=== PATIENT | male | born 1975 | race Caucasian/White ===

== ENCOUNTER 2021-12-19 12:38 | Emergency (ER) | payer MEDICARE, MEDICAID, SELFPAY ==
--- NOTE | 2021-12-19 | ECG_ITS ---
Test Reason : REPEAT DUE TO INCREASED CHEST PAIN Blood Pressure : / mmHG Vent. Rate : 080 BPM Atrial Rate : 080 BPM P-R Int : 180 ms QRS Dur : 092 ms QT Int : 362 ms P-R-T Axes : 053 094 028 degrees QTc Int : 417 ms Normal sinus rhythm Rightward axis Borderline ECG When compared with ECG of 19-DEC-2021 13:29, No significant change was found Referred By: Generic ED Physician Electronically Signed By:RASHARD REYES
--- NOTE | 2021-12-19 | ECG_ITS ---
Test Reason : WEAKNESS Blood Pressure : / mmHG Vent. Rate : 084 BPM Atrial Rate : 084 BPM P-R Int : 176 ms QRS Dur : 086 ms QT Int : 354 ms P-R-T Axes : 045 087 034 degrees QTc Int : 418 ms Normal sinus rhythm Normal ECG When compared with ECG of 20-JUL-2016 15:05, No significant change was found Referred By: Generic ED Physician Electronically Signed By:RASHARD REYES
--- NOTE | ~2021-12-19 | CT_ITS ---
EXAMINATION: CT ABDOMEN AND PELVIS WITHOUT CONTRAST CLINICAL INFORMATION: Right and left lower quadrant pain, rule out appendicitis or diverticulitis COMPARISON: None TECHNIQUE: Multidetector volumetric imaging was performed from the superior aspect of the liver through the pubic symphysis. Sagittal and coronal reformatted images were obtained on the technologist's workstation. This CT examination was performed using dose optimization techniques as appropriate, variously including the following: *Automated exposure control *Adjustment of mA and/or kV according to patient size (this includes techniques or standardized protocols for targeted exams where dose is matched to indication/reason for exam; i.e. extremities or head) *Use of iterative reconstruction technique DLP: 459 mGy-cm FINDINGS: LUNG BASES: The visualized lung bases are unremarkable. LIVER, GALLBLADDER, AND BILIARY TREE: The liver is normal in size, shape, and attenuation. No focal hepatic lesion or biliary ductal dilatation is present. The gallbladder is unremarkable. PANCREAS: Unremarkable. SPLEEN: Unremarkable. ADRENAL GLANDS: Unremarkable. KIDNEYS AND URETERS: No hydronephrosis or obstructing calculus bilaterally. There is an exophytic 3.1 cm hypoattenuating lesion off the lower left kidney measuring at the upper limits of simple fluid density. Nonspecific bilateral perinephric stranding noted. BLADDER: Nearly empty with diffuse mural prominence. GASTROINTESTINAL TRACT: No evidence of bowel obstruction or significant wall thickening. The appendix is unremarkable. No free fluid or free air is seen. ABDOMINAL WALL: No significant hernia is appreciated. LYMPH NODES: Normal. VASCULAR: Mild to moderate atherosclerotic calcifications. PELVIC VISCERA: Unremarkable. OSSEOUS STRUCTURES: Scattered degenerative changes are present in the spine. CT/CT abdomen pelvis wo IV con IMPRESSION: 1. No acute bowel abnormality identified. Normal appendix. No evidence of diverticulitis. 2. Mural prominence of the urinary bladder which could be due to underdistention versus cystitis in the proper clinical setting. 3. Exophytic left renal lesion measuring at the upper limits of fluid density. This is suggestive of a cyst, though correlation with nonemergent renal ultrasound is recommended.
[2021-12-19 13:23] VITALS: BP 121/84; PULSE 85; RESP 18; TEMP 36.3; O2SAT 98; BMI 24.4
[2021-12-19 13:41] LABS: MANUAL DIFF FLAG NO
[2021-12-19 13:43] LABS: Basophils Absolute Auto 0.1 X10*3/uL (0.0-0.2); Basophils Percent Auto 0.5 % (0-2); Eosinophils Absolute Auto 0.1 X10*3/uL (0.0-0.4); Eosinophils Percent Auto 1.2 % (0-4); Hematocrit 47.7 % (42.0-52.0); Hemoglobin 16.2 g/dl (14.0-18.0); Imm Gran Abs Auto 0.04 X10*3/uL (0.00-0.03); Imm Gran Pct Auto 0.4 % (0.0-0.4); Lymphocytes Absolute Auto 2.4 X10*3/uL (1.2-4.9); Lymphocytes Percent Auto 26.2 % (20-40); Mean Corpuscular Volume 91.2 fL (80.0-98.0); Mean Platelet Volume 8.7 fL (9.4-12.4); Monocytes Absolute Auto 0.6 X10*3/uL (0.1-1.2); Monocytes Percent Auto 6.3 % (2-11); Neutrophils Percent Auto 65.4 % (45-73); Platelet Count 203 X10*3/uL (160-400); Red Blood Count 5.23 X10*6/uL (4.60-5.80); Red Cell Distribution Width 13.7 % (11.0-16.0); White Blood Count 9.2 X10*3/uL (4.8-10.8)
[2021-12-19 13:59] LABS: Anion Gap 16 (12-20); Blood Urea Nitrogen 12 mg/dL (9-16); Calcium 9.2 mg/dL (8.4-10.2); Carbon Dioxide 25 mmol/L (22-29); Chloride 101 mmol/L (96-108); Creatinine Clr Calc Pharmacy 92.6; Estimated Glomerular Filt Rate > 60; Glucose Random 107 mg/dL (60-115); Potassium 4.4 mmol/L (3.3-5.1); Sodium 138 mmol/L (135-145)
[2021-12-19 18:05] VITALS: BP 112/64; PULSE 74; RESP 18; TEMP 36.7; O2SAT 100
--- NOTE | 2021-12-19 21:04 | PC.NURSE ---
Patient's mother comes to triage [facility] stating patient c/o chest pressure. EKG done prior #2 EKG ordered.
--- OUTSIDE RECORDS SUMMARY | 2021-12-19 22:49 | XMS_ITS ---
:1975 Author Care Team Providers Name Role Phone KEYLA ALONSO Primary Care Provider [phone] Allergies Code Code System Name Reaction Severity Status Onset Penicillins ? ? Active ? Wellbutrin ? ? Active ? Medications No Medications Reported Problems None recorded. Procedures None recorded. Results Lab Results None recorded. Past Encounters None recorded. Social History Tobacco Smoking Status Current Every Day Smoker Vaccine List None recorded. Plan of Care Reminders Provider Appointments None recorded. ? ? Lab None recorded. ? ? Referral None recorded. ? ? Procedures None recorded. ? ? Surgeries None recorded. ? ? Imaging None recorded. ? ? Vitals Height Weight BMI 5 ft 11 in 173 lbs 24.1 kg/m2
[2021-12-19 22:51] LABS: Appearance Urine Clear; Color Urine Dark Yellow; Glucose Urine UA Negative (Negative); Leukocyte Esterase Urine Trace (Negative); Nitrite Urine Negative (Negative); PH 5.5 (5.0-9.0); Specific Gravity - Urine >= 1.030 (1.005-1.025); UMIC TRIGGER UACC YES; Urine Blood Negative (Negative); Urine Ketones 15 mg/dL (Negative); Urine Protein Trace mg/dL (Neg-Trace)
--- NOTE | 2021-12-19 23:12 | ED_ITS ---
HPI - Abdominal Pain General Chief Complaint: Abdominal Pain Stated Complaint: abd pain, blood in bath tub when bathing Time Seen by Provider: 12/19/21 22:32 Source: patient and family (Mother) Mode of arrival: ambulatory Limitations: no limitations History of Present Illness HPI narrative: 46-year-old male who presents emergency department for evaluation of abdominal pain. The patient states he has been having abdominal pain on off for approximately 1 week. He points to his lower abdomen when asked to localize the pain. Describes the pain is a pressure-like pain which is 6/10 at its worst. He states that he has had similar pain in the past when he has had constipation. He did take Colace this morning. The patient goes to a group program and while he was at the group program he had a bowel movement which revealed reddish brown stool. Patient states that his pain increased and staff members told that he looked pale advised him to go to the emergency department for evaluation. The patient's mother then picked him up and brought him to the ED for evaluation. The patient states that he does have bowel movements daily. He states the last 3 days he has been having shaking chills but no fever. He has had no weight loss or weight gain. He has had associated nausea with no vomiting. Denied f requency, urgency or dysuria MD elicited complaint: abdominal pain Pertinent past history: constipation Onset (ago): week(s) (1) Location: RLQ and LLQ Severity: moderate Pain scale (0-10): 6 Quality: other (Pressure) Radiation: none Migration to: no migration Exacerbating factors: nothing Relieving factors: nothing Associated symptoms: nausea and chills Related Data Allergies Allergy/AdvReac Type Severity Reaction Status Date / Time bupropion [From WELLBUTRIN] Allergy Intermediate AGITATION Unverified 12/03/19 18:42 Penicillins [PCN] Allergy Mild NAUSEA & Unverified 12/03/19 18:42 VOMITING Review of Systems Review of Systems Yes all other systems are reviewed and are negative [facility] Past Medical History [facility] Narrative: Past medical history: Depression, schizoaffective disorder, PTSD. Past surgical history: None. Social history: The patient smokes 10 cigarettes per day and 1 or 2 cigars per day. He smoked for 35 years. He denies alcohol use. States that he smokes medical marijuana. Social History Social History Advance Directives: No Advance Directives Information Provided: No Physical Exam ED Vital Signs: Vital Signs - 24 hr 12/19/21 13:23 12/19/21 18:05 12/20/21 00:00 Temperature 97.4 F 98.0 F 97.5 F Pulse Rate 85 74 69 Respiratory Rate 18 18 18 Blood Pressure 121/84 112/64 96/62 Pulse Oximetry 98 100 96 Oxygen Delivery Method Room Air Room Air Room Air BMI result Body Mass Index 24.4 Const Other: Awake, alert, male patient, very pleasant cooperative, does not appear to be in distress, answers all questions appropriately. HENMT Head: Yes normal to inspection, Yes normocephalic and Yes atraumatic Ears: external ears normal General nose exam: Normal external nose present Face and sinus: Yes normal facial exam Mouth: Normal oral and palatal mucosa present Throat: Yes posterior oropharynx normal Eyes General: appearance normal, both eyes and all related structures Pupils: Equal, round and reactive pupils present Neck Neck: Yes normal visual inspection, Yes no lymphadenopathy, Yes trachea midline and Yes supple Chest Chest palpation & inspection: normal inspection of the chest and normal palpation of entire chest wall Resp Effort & Inspection: normal respiratory effort and able to speak in complete sentences Auscultation: clear to auscultation bilaterally Cardio Rate: regular rate Rhythm: regular rhythm Heart sounds: S1 normal heart sound present, S2 normal heart sound present and no murmurs GI Inspection: Yes normal to inspection Palpation (GI): Soft to palpation, Tenderness to palpation present (GI) (Mild diffuse tenderness) in the LLQ (Moderate) and in the RLQ (Moderate) and no guarding Auscultation: normal bowel sounds Rectal Exam - Male: Yes Visual inspection abnormal, Yes normal sphincter tone and Yes other (Brown loose stool, sent for occult blood testing) General: Yes no CVA tenderness Back/Spine/Pelvis Back: no CVA tenderness Skin General skin exam: no rashes or lesions noted Neuro Cranial nerves: Yes CN's II-XII intact bilaterally and Yes Equal, round and reactive pupils present Cognition (Neuro): normal cognition Motor exam (neuro): 5/5 motor strength present throughout Extrem General: Yes normal to inspection Psych Appearance: grossly normal Speech and movement: Normal speech and movement present Affect: normal affect Attitude: cooperative Thought process: Normal thought process present Thought content: Normal thought content present Course Course Course Narrative: 46-year-old male who presents emergency department for evaluation of intermittent abdominal pain x1 week, the pain is worse in the left lower and right lower quadrant areas, patient had a stool this morning which was brown and possibly bloody. Vital signs were normal. Examination did reveal right lower left lower quadrant tenderness otherwise was unremarkable. Rectal exam revealed brown stool which was loose, this was sent for occult blood testing. 2318: Patient did have a CBC and BMP obtained from triage at 13:38 hours: CBC was normal with an H&H of 16 and 47.7. BMP was normal. I added liver panel and lipase. CT scan of the abdomen pelvis will also be obtained. I will also obtain a CT scan of the abdomen pelvis. 0144: The patient's LFTs and lipase were normal. CT scan of the abdomen pelvis did not reveal a clear etiology for the patient's symptoms. Patient does have a left renal lesion which may be a cyst, radiologist is recommending ultrasound as an outpatient. The patient's stool Hemoccult test was negative. I did discuss these findings with the patient's mother, the patient will need to follow-up with his PCP for further evaluation, GI referral and possible colonoscopy and endoscopy. MDM - Abdominal Pain Lab Data Result diagrams: 12/19/21 13:38 12/19/21 13:38 Labs: Lab Results 12/19/21 12/19/21 12/19/21 Range/Units 13:38 13:38 22:45 WBC 9.2 (4.8-10.8) X10*3/uL RBC 5.23 (4.60-5.80) X10*6/uL Hgb 16.2 (14.0-18.0) g/dl Hct 47.7 (42.0-52.0) % MCV 91.2 (80.0-98.0) fL MCH 31.0 (27.0-33.0) pg MCHC 34.0 (31.0-36.0) g/dl RDW 13.7 (11.0-16.0) % Plt Count 203 (160-400) X10*3/uL MPV 8.7 L (9.4-12.4) fL Immature Gran % (Auto) 0.4 (0.0-0.4) % Neut % (Auto) 65.4 (45-73) % Lymph % (Auto) 26.2 (20-40) % [place] % (Auto) 6.3 (2-11) % Eos % (Auto) 1.2 (0-4) % Baso % (Auto) 0.5 (0-2) % Lymph # (Auto) 2.4 (1.2-4.9) X10*3/uL [place] # (Auto) 0.6 (0.1-1.2) X10*3/uL Eos # (Auto) 0.1 (0.0-0.4) X10*3/uL Baso # (Auto) 0.1 (0.0-0.2) X10*3/uL Abs Immat Gran (auto) 0.04 H (0.00-0.03) X10*3/uL Absolute Neuts (auto) 6.0 (2.0-8.3) x10*3/uL Absolute Nucleated RBC 0.000 (0.0-0.012) X10*3/uL Nucleated RBC % (auto) 0.0 (0.0-0.2) /100WBC Sodium 138 (135-145) mmol/L Potassium 4.4 (3.3-5.1) mmol/L Chloride 101 (96-108) mmol/L Carbon Dioxide 25 (22-29) mmol/L Anion Gap 16 (12-20) BUN 12 (9-16) mg/dL Creatinine 1.05 (0.5-1.4) mg/dL Estim Creat Clear Calc 92.6 Estimated GFR > 60 Random Glucose 107 (60-115) mg/dL Calcium 9.2 (8.4-10.2) mg/dL Total Bilirubin 0.5 (0.0-1.0) mg/dL Direct Bilirubin 0.2 (0.0-0.5) mg/dL AST 10 (5-37) U/L ALT 8 (0-40) U/L Alkaline Phosphatase 53 (39-117) U/L Total Protein 6.7 (6.5-8.0) g/dL Albumin 4.3 (3.5-5.0) g/dL Lipase 11 (8-78) U/L Urine Color Dark Yellow Urine Appearance Clear Urine pH 5.5 (5.0-9.0) Ur Specific [place] >= 1.030 H (1.005-1.025) Urine Protein Trace (Neg-Trace) mg/dL Urine Glucose (UA) Negative (Negative) mg/dL Urine Ketones 15 (Negative) mg/dL Urine Blood Negative (Negative) Urine Nitrite Negative (Negative) Ur Leukocyte Esterase Trace H (Negative) Urine RBC 0-2 (0-2) /HPF Urine WBC 0-5 (0-5) /HPF Ur Squamous Epith Cells 0-2 (0-2) /HPF Urine Bacteria None Seen (None Seen) Hyaline Casts 0-2 (0-2) /LPF Stool Occult Blood (NEGATIVE) 12/19/21 Range/Units 23:27 WBC (4.8-10.8) X10*3/uL RBC (4.60-5.80) X10*6/uL Hgb (14.0-18.0) g/dl Hct (42.0-52.0) % MCV (80.0-98.0) fL MCH (27.0-33.0) pg MCHC (31.0-36.0) g/dl RDW (11.0-16.0) % Plt Count (160-400) X10*3/uL MPV (9.4-12.4) fL Immature Gran % (Auto) (0.0-0.4) % Neut % (Auto) (45-73) % Lymph % (Auto) (20-40) % [place] % (Auto) (2-11) % Eos % (Auto) (0-4) % Baso % (Auto) (0-2) % Lymph # (Auto) (1.2-4.9) X10*3/uL [place] # (Auto) (0.1-1.2) X10*3/uL Eos # (Auto) (0.0-0.4) X10*3/uL Baso # (Auto) (0.0-0.2) X10*3/uL Abs Immat Gran (auto) (0.00-0.03) X10*3/uL Absolute Neuts (auto) (2.0-8.3) x10*3/uL Absolute Nucleated RBC (0.0-0.012) X10*3/uL Nucleated RBC % (auto) (0.0-0.2) /100WBC Sodium (135-145) mmol/L Potassium (3.3-5.1) mmol/L Chloride (96-108) mmol/L Carbon Dioxide (22-29) mmol/L Anion Gap (12-20) BUN (9-16) mg/dL Creatinine (0.5-1.4) mg/dL Estim Creat Clear Calc Estimated GFR Random Glucose (60-115) mg/dL Calcium (8.4-10.2) mg/dL Total Bilirubin (0.0-1.0) mg/dL Direct Bilirubin (0.0-0.5) mg/dL AST (5-37) U/L ALT (0-40) U/L Alkaline Phosphatase (39-117) U/L Total Protein (6.5-8.0) g/dL Albumin (3.5-5.0) g/dL Lipase (8-78) U/L Urine Color Urine Appearance Urine pH (5.0-9.0) Ur Specific [place] (1.005-1.025) Urine Protein (Neg-Trace) mg/dL Urine Glucose (UA) (Negative) mg/dL Urine Ketones (Negative) mg/dL Urine Blood (Negative) Urine Nitrite (Negative) Ur Leukocyte Esterase (Negative) Urine RBC (0-2) /HPF Urine WBC (0-5) /HPF Ur Squamous Epith Cells (0-2) /HPF Urine Bacteria (None Seen) Hyaline Casts (0-2) /LPF Stool Occult Blood NEGATIVE (NEGATIVE) Discharge Plan Discharge Clinical Impression: Acute lower gastrointestinal bleeding, Abdominal pain, Kidney lesion Patient Disposition: Home, Self-Care Instructions: Rectal Bleeding (ED) Additional Instructions: Your blood work was normal, you are not anemic with a normal hemoglobin and hematocrit of 16 in 47. Your liver tests and lipase were normal. Your urine was negative. On your rectal exam your stool was brown and the occult test for blood was negative. The CT scan of your abdomen pelvis did not reveal a clear cause for your rectal bleeding. You do have a left kidney lesion which the radiologist is recommending an outpatient ultrasound to determine if this lesion is a cyst. You will need to contact your doctor to get an outpatient ultrasound You will also need to talk to her doctor about getting a referral to a live games dealer to further evaluate the bleeding from your rectum that you noticed today. Follow-up with your doctor in 2 days. Please return to the emergency department if your symptoms get worse or if you develop any symptoms that are concerning to you. CT scan of the abdomen pelvis with out IV contrast, radiology reading as below: IMPRESSION: 1.? No acute bowel abnormality identified. Normal appendix. No evidence of diverticulitis. 2.? Mural prominence of the urinary bladder which could be due to underdistention versus cystitis in the proper clinical setting. 3.? Exophytic left renal lesion measuring at the upper limits of fluid density. This is suggestive of a cyst, though correlation with nonemergent renal ultrasound is recommended.? Dictated By: Raúl Chris MD
[2021-12-19 23:40] LABS: OBS Int Ctl Valid YES; OBS1 NEGATIVE (NEGATIVE)
[2021-12-19 23:51] LABS: Bacteria Urine None Seen (None Seen); Hyaline Casts Urine 0-2 /LPF (0-2); RBC Urine 0-2 /HPF (0-2); Squamous Epithelial Cell Urine 0-2 /HPF (0-2); WBC Urine 0-5 /HPF (0-5)
[2021-12-19 23:53] LABS: Alanine Aminotransferase 8 U/L (0-40); Albumin Level 4.3 g/dL (3.5-5.0); Alkaline Phosphatase 53 U/L (39-117); Aspartate Amino Transferase 10 U/L (5-37); Bilirubin Direct 0.2 mg/dL (0.0-0.5); Bilirubin Total 0.5 mg/dL (0.0-1.0); Lipase 11 U/L (8-78); Total Protein 6.7 g/dL (6.5-8.0)
[2021-12-20] VITALS: BP 96/62; PULSE 69; RESP 18; TEMP 36.4; O2SAT 96
[2021-12-20] MEDS: Acetaminophen 325 MG TABLET 975 MG PO (02:01)
== END 2021-12-20 02:06 | disposition home or self-care (01) ==
PROVIDERS: Emergency Provider Emergency Medicine Emergency Medical Services; PCP Internal Medicine
DX: K92.2 Gastrointestinal hemorrhage, unspecified (principal); R10.32 Left lower quadrant pain; R07.89 Other chest pain; N28.9 Disorder of kidney and ureter, unspecified; Z79.899 Other long term (current) drug therapy
CPT/HCPCS: 36415; 74176; 80048; 80076; 81001; 81003; 82272; 83690; 85025; 93005; 99284